=== PATIENT | female | born 2000 | race Two or more races ===

== ENCOUNTER 2020-11-23 13:08 | Inpatient (IN) | payer SELFPAY ==
[~2020-11-23] VITALS: Ht 162.6 cm; Wt 74.8 kg
[2020-11-23] MEDS ORDERED: IV RINGERS,LACTATED 1000ML 1,000 ML IV SCH ×3 (13:30→18:45)
[2020-11-23 14:12] LABS: AMNIO PT POSITIVE
--- NOTE | 2020-11-23 14:53 | PDOC1 ---
[facility] H&P Date of Admission: Date of Admission: Nov 23, 2020 at 13:08 History of Present Illness: EDC: 12/02/20 LMP: 02/09/20 20y @ 38.5 by 20wk u/s presents to L&D with LOF. The pt reported a gush of fluid this morning. The pt was confirmed ruptured by aminosure. The pt was found to be 1 cm on presentation. She was ctxing but reported them to be mild. PMH: Denies PSH: Denies Meds: PNV All: NKDA OBHx: G1 SH: no tob, no EtOH FH: noncontributory Allergies: Coded Allergies: No Known Drug Allergies (Unverified , 11/23/20) Physical Exam: PE: GENERAL: No apparent distress. Alert and oriented. HEENT: Head normocephalic, atraumatic. NECK: Supple LUNGS: Clear to auscultation. HEART: RRR, S1, S2 present, pulses intact ABDOMEN: Soft, positive bowel sounds. EXTREMITIES: No cyanosis or edema. NEUROLOGIC: Normal speech, normal tone PSYCHIATRIC: Normal affect, normal mood. SKIN: No ulceration. FHT: 130s +acels/no decels/mLTV [place]: 1-2 min SVE: 2/75/-2 Labs: Laboratory Tests Test 11/23/20 13:50 Amniotic Fluid Swab Test Positive Assessment & Plan: A/P 20y @ 38.5 by 20wk u/s 1.) SROM will start Pit to augment labor 2.) Chl pos - YAO neg 10/20 3.) TDAP given 09/11/20 4.) Fetus cat I FHT 5.) GBS neg ROCHELLE HUITRON MD Nov 23, 2020 14:53
[2020-11-23] MEDS ORDERED: OXYTOCIN 30 UNIT/500 ML PREMIX 500 ML IV PRN ×3 (15:00→20:45)
[2020-11-23] MEDS ORDERED: BUTORPHANOL 2 MG/ML VIAL. IVP PRN ×2 (15:00)
[2020-11-23] MEDS ORDERED: 0.9 % SODIUM CHLORIDE 10 ML DISP.SYRIN. IV PRN ×2 (15:00→20:45)
[2020-11-23] MEDS ORDERED: TERBUTALINE 1 MG/ML VIAL. SQ PRN (15:00)
[2020-11-23] MEDS ORDERED: LIDOCAINE 1% PF 30 ML VIAL. INJ PRN (15:00)
[2020-11-23] MEDS ORDERED: ACETAMINOPHEN 325 MG TABLET. PO PRN ×2 (15:00→20:45)
[2020-11-23 15:22] LABS: BASO % 1 % (0-3); EOS % 0 % (0-3); HEMATOCRIT 34.2 % (36.0-47.0); HEMOGLOBIN 11.9 g/dL (12.0-15.5); LYMPH # 1.1 x10^3/uL (1.0-4.8); LYMPH % 11 % (24-48); MEAN CORPUSCULAR HEMOGLOBIN 31 pg (25-35); MEAN CORPUSCULAR HGB CONC 35 g/dL (31-37); MEAN CORPUSCULAR VOLUME 88 fL (79-100); MONO # 0.5 x10^3/uL (0.0-1.1); MONO % 5 % (0-9); NEUT % 83 % (31-73); PLATELET COUNT 241 x10^3/uL (140-400); RED BLOOD COUNT 3.89 x10^6/uL (3.50-5.40); RED CELL DISTRIBUTION WIDTH 12.9 % (11.5-14.5); WHITE BLOOD COUNT 9.6 x10^3/uL (4.0-11.0)
[2020-11-23 15:34] VITALS: BP 102/65
[2020-11-23] MEDS ORDERED: ROPIVacaine 0.2% PF 10 ML VIAL. ONE ×2 (18:12→18:30)
[2020-11-23] MEDS ORDERED: L&D EPIDURAL SYRINGE 50 ML ONE (18:12)
[2020-11-23] MEDS ORDERED: L&D EPIDURAL 50 ML SYRINGE. ONE (18:30)
[2020-11-23] MEDS ORDERED: ePHEDrine PF IN SALINE 50 MG/10 ML SYRINGE. IV ONE ×2 (18:30→18:37)
[2020-11-23] MEDS ORDERED: ROPIVacaine 0.2% PF 10 ML VIAL. EPID PRN (18:45)
[2020-11-23] MEDS ORDERED: fentaNYL PF VIAL 100 MCG/2 ML VIAL EPID PRN (18:45)
[2020-11-23] MEDS ORDERED: NALOXONE 0.4 MG/ML VIAL. IV PRN (18:45)
[2020-11-23] MEDS ORDERED: BUPIVACAINE MPF 0.25% 30 ML VIAL. EPID PRN (18:45)
[2020-11-23] MEDS ORDERED: L&D EPIDURAL SYRINGE 50 ML EPID PRN (18:45)
--- NOTE | 2020-11-23 20:40 | PDOC ---
VAGINAL DELIVERY DATE DATE: 11/23/20 TIME: 20:37 TIME Patient delivered a viable male over intact perineum at 2207. Wt 7 lb 7 oz. Apgars 8/9. Placenta delivered spontaneously, intact with 3VC. No lacerations noted. Good hemostasis noted. 20 U of Pit given with IVF. EBL 300cc. WEIGHT Weight [ ] ROCHELLE HUITRON MD Nov 23, 2020 20:40
[2020-11-23] MEDS ORDERED: MAGNESIUM HYDROXIDE 2,400 MG/30 ML ORAL.SUSP. PO PRN (20:45)
[2020-11-23] MEDS ORDERED: MMR per PROTOCOL. MC PRN (20:45)
[2020-11-23] MEDS ORDERED: HYDROCORTISONE 1% TOPICAL OINTMENT 30GM TUBE. TP PRN (20:45)
[2020-11-23] MEDS ORDERED: SIMETHICONE 80 MG TAB.CHEW PO PRN (20:45)
[2020-11-23] MEDS ORDERED: ZOLPIDEM 5 MG TABLET. PO PRN (20:45)
[2020-11-23] MEDS ORDERED: oxyCODONE/APAP 5/325 1 TAB TABLET PO PRN (20:45)
[2020-11-23] MEDS ORDERED: PHENYLEPH/MINERAL OIL/PETROLAT RECTAL OINTMENT TUBE. RC PRN (20:45)
[2020-11-23] MEDS ORDERED: TDaP (Adacel) per PROTOCOL. MC PRN (20:45)
[2020-11-23] MEDS ORDERED: MAG HYDROX/ALUMINUM HYD/SIMETH 30 ML ORAL.SUSP PO PRN (20:45)
[2020-11-23] MEDS ORDERED: diphenhydrAMINE HCL 25 MG CAPSULE PO PRN (20:45)
[2020-11-23] MEDS ORDERED: DOCUSATE SODIUM 100 MG CAPSULE. PO PRN (20:45)
[2020-11-23] MEDS: IBUPROFEN 400 MG TABLET. PO PRN (22:53)
[2020-11-23 23:26] VITALS: BP 109/57
[2020-11-24] MEDS ORDERED: CALCIUM CARBONATE 500 MG TAB.CHEW PO PRN (00:30)
[2020-11-24 04:12] VITALS: BP 82/48
[2020-11-24 05:27] LABS: HEMATOCRIT 30.7 % (36.0-47.0); HEMOGLOBIN 10.4 g/dL (12.0-15.5); RED BLOOD COUNT 3.48 x10^6/uL (3.50-5.40); RED CELL DISTRIBUTION WIDTH 12.6 % (11.5-14.5); WHITE BLOOD COUNT 12.6 x10^3/uL (4.0-11.0)
[2020-11-24] MEDS ORDERED: FERROUS SULFATE 325 MG TABLET. PO SCH (08:00)
[2020-11-24 08:35] VITALS: BP 102/58
[2020-11-24] MEDS ORDERED: PRENATAL MULTIVITAMIN TABLET. PO SCH (09:00)
--- NOTE | 2020-11-24 13:26 | PDOC ---
WORKGROUP LEADER PROGRESS NOTE Date of Service: DATE: 11/24/20 TIME: 13:25 Subjective: Pt with good pain control. Bia PO. Voiding. Minimal lochia. Objective: Vital Signs: Vital Signs Date Time Temp Pulse Resp B/P (MAP) Pulse Ox O2 Delivery O2 Flow Rate FiO2 11/23/20 15:34 97.9 80 18 102/65 (77) Room Air 97.9 11/23/20 23:26 98 Vital Signs Date Time Temp Pulse Resp B/P (MAP) Pulse Ox O2 Delivery O2 Flow Rate FiO2 11/24/20 08:35 97.6 105 20 102/58 (73) 97.6 11/24/20 08:00 Room Air 11/24/20 04:12 97 Labs: Laboratory Tests Test 11/23/20 13:50 11/23/20 15:10 11/23/20 15:25 11/24/20 04:12 Amniotic Fluid Swab Test Positive White Blood Count 9.6 x10^3/uL (4.0-11.0) 12.6 x10^3/uL (4.0-11.0) H Red Blood Count 3.89 x10^6/uL (3.50-5.40) 3.48 x10^6/uL (3.50-5.40) L Hemoglobin 11.9 g/dL (12.0-15.5) L 10.4 g/dL (12.0-15.5) L Hematocrit 34.2 % (36.0-47.0) L 30.7 % (36.0-47.0) L Mean Corpuscular Volume 88 fL (79-100) 88 fL (79-100) Mean Corpuscular Hemoglobin 31 pg (25-35) 30 pg (25-35) Mean Corpuscular Hemoglobin Concent 35 g/dL (31-37) 34 g/dL (31-37) Red Cell Distribution Width 12.9 % (11.5-14.5) 12.6 % (11.5-14.5) Platelet Count 241 x10^3/uL (140-400) 194 x10^3/uL (140-400) Neutrophils (%) (Auto) 83 % (31-73) H Lymphocytes (%) (Auto) 11 % (24-48) L Monocytes (%) (Auto) 5 % (0-9) Eosinophils (%) (Auto) 0 % (0-3) Basophils (%) (Auto) 1 % (0-3) Neutrophils # (Auto) 8.0 x10^3/uL (1.8-7.7) H Lymphocytes # (Auto) 1.1 x10^3/uL (1.0-4.8) Monocytes # (Auto) 0.5 x10^3/uL (0.0-1.1) Eosinophils # (Auto) 0.0 x10^3/uL (0.0-0.7) Basophils # (Auto) 0.0 x10^3/uL (0.0-0.2) Treponema pallidum Antibody Nonreactive (Nonreactive) SARS-CoV-2 RNA (JACI) Negative (Negative) SARS-CoV-2 Antigen (Rapid) Negative (NEGATIVE) Laboratory Tests 11/23/20 15:10 11/24/20 04:12 Laboratory Tests 11/24/20 04:12 Physical Exam: GENERAL: No apparent distress. Alert and oriented. HEENT: Head normocephalic, atraumatic. NECK: Supple LUNGS: Clear to auscultation. HEART: RRR, S1, S2 present, pulses intact ABDOMEN: Soft, positive bowel sounds. EXTREMITIES: No cyanosis or edema. NEUROLOGIC: Normal speech, normal tone PSYCHIATRIC: Normal affect, normal mood. SKIN: No ulceration. FFNT below umb No C/C/E Assessment & Plan: A/P 20y PPD #1 s/p 1.) PP doing well 2.) Chl pos - YAO neg 10/20 3.) TDAP given 09/11/20 4.) Anemia Hgb 11.9 -> 10.4 5.) Cont PP care ROCHELLE HUITRON MD Nov 24, 2020 13:26
[2020-11-24 14:36] VITALS: BP 97/55
[2020-11-24] MEDS: IBUPROFEN 400 MG TABLET. PO PRN (20:29)
[2020-11-24] MEDS: BENZOCAINE 20% TOPICAL AEROSOL SPRAY 57GM CAN. TP PRN (20:29)
[2020-11-24 20:40] VITALS: BP 107/62
[2020-11-25 05:59] VITALS: BP 107/71
[2020-11-25] MEDS ORDERED: IBUP-1060 PO (08:19)
[2020-11-25] MEDS ORDERED: DOCU-109 PO (08:19)
--- NOTE | 2020-11-25 08:51 | PDOC ---
CHRONOMETER ASSEMBLER AND ADJUSTER PROGRESS NOTE Date of Service: DATE: 11/25/20 TIME: 08:50 Subjective: Pt with good pain control. Bia PO. Voiding. Minimal lochia. Objective: Vital Signs: Vital Signs Date Time Temp Pulse Resp B/P (MAP) Pulse Ox O2 Delivery O2 Flow Rate FiO2 11/24/20 08:00 Room Air 11/24/20 08:35 97.6 105 20 102/58 (73) 97.6 11/24/20 20:40 98 Vital Signs Date Time Temp Pulse Resp B/P (MAP) Pulse Ox O2 Delivery O2 Flow Rate FiO2 11/25/20 05:59 97.8 68 16 107/71 (83) 99 Room Air 97.8 Physical Exam: GENERAL: No apparent distress. Alert and oriented. HEENT: Head normocephalic, atraumatic. NECK: Supple LUNGS: Clear to auscultation. HEART: RRR, S1, S2 present, pulses intact ABDOMEN: Soft, positive bowel sounds. EXTREMITIES: No cyanosis or edema. NEUROLOGIC: Normal speech, normal tone PSYCHIATRIC: Normal affect, normal mood. SKIN: No ulceration. FFNT below umb No C/C/E Assessment & Plan: A/P 20y PPD #2 s/p 1.) PP doing well 2.) Chl pos - YAO neg 10/20 3.) TDAP given 09/11/20 4.) Anemia Hgb 11.9 -> 10.4 5.) D/c home ROCHELLE HUITRON MD Nov 25, 2020 08:51
[2020-11-25 09:10] VITALS: BP 112/73
--- NOTE | 2020-11-25 09:32 | DS ---
DATE OF DISCHARGE: 11/25/2020 ADMISSION DIAGNOSES: 1. Intrauterine at 38 weeks and 5 days by 20 week ultrasound. 2. Spontaneous rupture of membranes. 3. Gonorrhea positive with negative treatment of care. 4. GBS negative. DISCHARGE DIAGNOSES: 1. Intrauterine at 38 weeks and 5 days by 20 week ultrasound. 2. Spontaneous rupture of membranes. 3. Gonorrhea positive with negative treatment of care. 4. GBS negative. PROCEDURE: Spontaneous vaginal delivery. BRIEF HOSPITAL COURSE: The patient is a 20-year-old 1, para 0, who presented to Labor and Delivery at 38 weeks and 5 days by 20 week ultrasound with leakage of fluid. The patient was confirmed ruptured. The patient was 1 cm on presentation. The patient was jorge, but reported them to be very mild. The patient was started on Pitocin for augmentation. The patient ultimately delivered vaginally. See delivery note for full detail. By day #2, the patient was meeting all discharge criteria and was subsequently discharged home. Of note, the patient had a hemoglobin of 11.9 on admission and after delivery was found to be 10.4. DISCHARGE INSTRUCTIONS: The patient was told not to lift anything greater than 20 pounds, have pelvic rest for 6 weeks. CALL IF: The patient was to call if she had fevers, chills, nausea, vomiting, abdominal pain or any additional questions or concerns. FOLLOWUP APPOINTMENT: The patient was to follow up on 01/06 at 8:00 a.m. with nurse practitioner, Karla Vick. DISCHARGE MEDICATIONS: The patient was given a prescription for Motrin 800 mg 30 pills and Colace 100 mg 30 pills. ROCHELLE HUITRON MD DR: ALE/alyssa JOB#: [id number] / [id number] NOEMÍ
[2020-11-25] MEDS: IBUPROFEN 400 MG TABLET. PO PRN (10:37)
[2020-11-25] MEDS: BENZOCAINE 20% TOPICAL AEROSOL SPRAY 57GM CAN. TP PRN (10:37)
== END 2020-11-25 11:44 | disposition home or self-care (01) | DRG 806 ==
LOC: OBSVTOIN 13:08 → 3 SO LND 13:08
PROVIDERS: ADMIT Obstetrics & Gynecology; ATTEND Obstetrics & Gynecology
PROC: 10E0XZZ Delivery of Products of Conception, External Approach (ICD-10-PCS; principal; 2020-11-23)
DX: O42.92 Full-term premature rupture of membranes, unspecified as to length of time between rupture and onset of labor (principal); O98.22 Gonorrhea complicating childbirth; Z37.0 Single live birth; A54.9 Gonococcal infection, unspecified; O99.02 Anemia complicating childbirth; Z20.822 Contact with and (suspected) exposure to COVID-19; D64.9 Anemia, unspecified; Z3A.38 38 weeks gestation of pregnancy
CPT/HCPCS: 36415; 84112; 85025; 85027; 86592; 86850; 86900; 86901; 87426; A6258; C1755; J2590; J2795; J3010; J7120; U0003; G0378